=== PATIENT | male | born 1980 | race Two or more races ===

== ENCOUNTER 2016-11-02 10:48 | Emergency (ER) | payer MEDICAID ==
[~2016-11-02] VITALS: Ht 190.5 cm; Wt 160.1 kg
[2016-11-02 11:46] VITALS: BP 146/107
[2016-11-02] MEDS ORDERED: KETOROLAC TROMETH 60MG/2ML VIAL IM ONE (13:00)
== END 2016-11-02 13:47 | disposition home or self-care (01) ==
LOC: ER 10:48
DX: G89.29 Other chronic pain (principal); M54.5 Low back pain; M54.16 Radiculopathy, lumbar region; R20.0 Anesthesia of skin; E66.9 Obesity, unspecified; Z88.0 Allergy status to penicillin; Z68.41 Body mass index [BMI] 40.0-44.9, adult
CPT/HCPCS: 96372; 99283; J1885

== ENCOUNTER 2021-03-07 19:01 | Emergency (ER) | payer MEDICAID ==
[~2021-03-07] VITALS: Ht 188 cm; Wt 111.1 kg
[2021-03-07 19:04] VITALS: BP 136/80
== END 2021-03-07 23:49 | disposition home or self-care (01) ==
LOC: ER 19:03
DX: S93.502A Unspecified sprain of left great toe, initial encounter (principal); J45.909 Unspecified asthma, uncomplicated; Z88.0 Allergy status to penicillin; W22.8XXA Striking against or struck by other objects, initial encounter; Y93.89 Activity, other specified; Y92.89 Other specified places as the place of occurrence of the external cause; Y99.8 Other external cause status
CPT/HCPCS: 73630